=== PATIENT | female | born 1940 | race Caucasian/White ===

== ENCOUNTER 2016-04-04 18:10 | Emergency (ER) | payer MEDICARE, MEDICAID ==
[~2016-04-04 18:10] MED LIST: ADVAIR IH; AMBIEN 5MG TABLE5 MG PO; AMITRIPTYLINE H50 MG PO; ARICEPT PO; ASPIRIN E.C. 8181 MG PO; BUPROPION100 MG PO; Bupropion Hcl PO; CELEBREX PO; CELEBREX200 MG PO; CHERATUSSIN AC10 ML PO; COLACE 100100 MG/CAP PO; COZAAR 50MG50 MG/TAB PO; CYCLOBENZAPRINE10 MG PO; DOCUSATE SODIU100 M2 PO; DONEPEZIL HYDROC5 MG PO; DURAGESIC25 MCG/PAT TD; FLONASE ALLERG9.9 ML NS; FLONASE NASAL S16 GM NS; GABAPENTIN PO; GABAPENTIN400 MG PO; HCTZ PO; HEPARIN 50500 U/5 ML IV; HYDROCODONE BIT1 T41 PO; HYZAAR 25 MG-101 TAB PO; HYZAAR 50-12.1 UDTAB PO; Humalog SC; LANTUS PEN100 U/ML SC; LORTAB 5/500 501 TAB PO; LOTRISONE15 GM TP; MELATONIN PO; NORCO 325 MG-51 TA1 PO; NORCO 325 MG-7.1 TAB PO; NOVOLOG FLEX100 U/ML SC; NS INT FLUSH 1010 ML IV; ONDANSETRON4 M1 PO; PANTOPRAZOLE SO20 MG PO; PERCOCET 325 MG1 TA2 PO; PRILOSEC 20MG20 MG PO; REMOVE FENTANYL TD; RESTORIL PO; TYLENOL 325MG325 MG PO; TYLENOL 650MG650 M2 PO; ULTRAM50 M1 PO; VALIUM 5MG T5 MG/TAB PO; VANCOMYCIN HCL1 GM IV; XANAX .25M0.25 MG/TA PO; ZOFRAN ODT4 MG PO
[2016-04-04] MEDS ORDERED: [UNRECOGNIZED DRUG - OTHER] SQ (18:14)
[2016-04-04] MEDS ORDERED: PERCOCET 325 MG1 TA2 PO (20:07)
== END 2016-04-04 20:28 | disposition home or self-care (01) ==
LOC: ED 18:10
DX: S80.01XA Contusion of right knee, initial encounter (principal); S80.02XA Contusion of left knee, initial encounter; E11.9 Type 2 diabetes mellitus without complications; S20.219A Contusion of unspecified front wall of thorax, initial encounter; Z79.4 Long term (current) use of insulin; W19.XXXA Unspecified fall, initial encounter; Y92.018 Other place in single-family (private) house as the place of occurrence of the external cause

== ENCOUNTER → 2016-08-03 | Outpatient (CLI) | payer MEDICARE, MEDICAID ==
[2016-04-04 20:32] VITALS: BP 147/76
[~2016-08-03] MED LIST changes: +ARICEPT10 M1 PO; +GLUCOPHAGE PO; +INSULIN 70/3100 U/ML SQ; +[UNRECOGNIZED DRUG - OTHER] SQ
== END ==
LOC: MAMMO 12:47
DX: Z12.31 Encounter for screening mammogram for malignant neoplasm of breast (principal)
CPT/HCPCS: G0202

== ENCOUNTER 2016-08-22 16:45 | Emergency (ER) | payer MEDICARE, MEDICAID ==
[~2016-08-22] VITALS: Ht 162.6 cm; Wt 113.6 kg
[~2016-08-22 16:45] MED LIST changes: -ARICEPT10 M1 PO; -GLUCOPHAGE PO; -INSULIN 70/3100 U/ML SQ
[2016-08-22] MEDS ORDERED: ARICEPT10 M1 PO (16:55)
[2016-08-22] MEDS ORDERED: INSULIN 70/3100 U/ML SQ (16:56)
[2016-08-22] MEDS ORDERED: GLUCOPHAGE PO (16:57)
[2016-08-22 18:45] VITALS: BP 177/78
== END 2016-08-22 18:20 | disposition home or self-care (01) ==
LOC: ED 16:45
DX: E11.65 Type 2 diabetes mellitus with hyperglycemia (principal); Z79.4 Long term (current) use of insulin; R10.32 Left lower quadrant pain; E66.01 Morbid (severe) obesity due to excess calories; Z68.41 Body mass index [BMI] 40.0-44.9, adult; I10 Essential (primary) hypertension; K21.9 Gastro-esophageal reflux disease without esophagitis

== ENCOUNTER → 2016-08-23 | Day surgery (SDC) | payer MEDICARE, MEDICAID ==
[2016-08-22 18:45] VITALS: BP 177/78
[~2016-08-23] MED LIST changes: +ARICEPT10 M1 PO; +GLUCOPHAGE PO; +INSULIN 70/3100 U/ML SQ
== END ==
LOC: MSO 07:02
DX: Z12.11 Encounter for screening for malignant neoplasm of colon (principal); Z86.010 Personal history of colon polyps; R10.32 Left lower quadrant pain; D12.2 Benign neoplasm of ascending colon; D12.3 Benign neoplasm of transverse colon; K57.30 Diverticulosis of large intestine without perforation or abscess without bleeding
CPT/HCPCS: 00810; J3010; J7042

== ENCOUNTER 2016-11-22 01:37 | Emergency (ER) | payer MEDICARE, MEDICAID ==
[~2016-11-22] VITALS: Ht 175.3 cm; Wt 159.1 kg
[2016-11-22 02:35] VITALS: BP 154/72
== END 2016-11-22 02:35 | disposition home or self-care (01) ==
LOC: ED 01:37
DX: S96.211A Strain of intrinsic muscle and tendon at ankle and foot level, right foot, initial encounter (principal); X50.1XXA Overexertion from prolonged static or awkward postures, initial encounter; Y92.009 Unspecified place in unspecified non-institutional (private) residence as the place of occurrence of the external cause; E11.9 Type 2 diabetes mellitus without complications; Z79.4 Long term (current) use of insulin
CPT/HCPCS: J1885

== ENCOUNTER → 2017-04-07 | Outpatient (CLI) | payer MEDICARE, MEDICAID | LOC: MAMMO 12:42 | DX: N63.20 Unspecified lump in the left breast, unspecified quadrant (principal) ==

== ENCOUNTER 2017-05-15 08:30 | Emergency (ER) | payer MEDICARE, MEDICAID ==
[~2017-05-15] VITALS: Ht 165.1 cm; Wt 123.1 kg
[2017-05-15] MEDS ORDERED: AMITRIPTYLINE H50 M1 PO (08:45)
[2017-05-15] MEDS ORDERED: WELLBUTRIN (08:45)
[2017-05-15] MEDS ORDERED: PIOGLITAZONE HC15 MG PO (08:46)
[2017-05-15] MEDS ORDERED: OMEPRAZOLE D/R20 MG PO (08:46)
[2017-05-15 09:11] LABS: BASO # 0.1 (0.02-0.10); EOS # 0.3 (0.04-0.40); EOS % 2.8 % (1.0-5.0); HEMATOCRIT 40.9 % (37.0-47.0); MEAN CELL VOLUME 79 fl (78-100); MEAN CORPUSCULAR HEMOGLOBIN 25 pg (27-31); MEAN CORPUSCULAR HGB CONC 32 g/dL (33-37); MEAN PLATELET VOLUME 9.4 fl (7.4-10.4); MONO # 0.7 (0.20-0.80); PLATELET COUNT 303 K/mm3 (130-400); RED BLOOD COUNT 5.17 M/mm3 (4.10-5.30); RED CELL DISTRIBUTION WIDTH 15.2 % (11.5-14.5)
[2017-05-15 09:23] LABS: ALBUMIN 3.8 g/dL (3.5-5.0); BUN/CREATININE RATIO 18.5 (6.0-26.0); POTASSIUM 3.8 mmol/L (3.6-5.0); TOTAL BILIRUBIN 0.3 mg/dL (0.2-1.3); TOTAL PROTEIN 7.5 g/dL (6.3-8.2)
[2017-05-15] MEDS ORDERED: ZOFRAN ODT8 M1 PO (10:36)
[2017-05-15 10:54] VITALS: BP 173/85
== END 2017-05-15 10:52 | disposition home or self-care (01) ==
LOC: ED 08:30
PROVIDERS: Physician Assistant
DX: A08.4 Viral intestinal infection, unspecified (principal); E11.9 Type 2 diabetes mellitus without complications; Z79.4 Long term (current) use of insulin; K21.9 Gastro-esophageal reflux disease without esophagitis; I10 Essential (primary) hypertension; I51.9 Heart disease, unspecified

== ENCOUNTER 2018-03-02 09:27 | Emergency (ER) | payer MEDICARE, MEDICAID ==
[~2018-03-02 09:27] MED LIST changes: +AMITRIPTYLINE H50 M1 PO; +OMEPRAZOLE D/R20 MG PO; +PIOGLITAZONE HC15 MG PO; +WELLBUTRIN; +ZOFRAN ODT8 M1 PO
[2018-03-02] MEDS ORDERED: PAIN RELIEVER500 M2 PO (09:37)
[2018-03-02] MEDS ORDERED: WELLBUTRIN PO (09:38)
[2018-03-02] MEDS ORDERED: LOSARTAN POTASS1 TA2 PO (09:39)
[2018-03-02] MEDS ORDERED: INSULIN 70/3100 U/ML SQ (09:39)
[2018-03-02] MEDS ORDERED: NORCO 325 MG-51 TA1 PO (11:01)
[2018-03-02] MEDS ORDERED: CYCLOBENZAPRINE10 M1 PO (11:01)
[2018-03-02 11:20] VITALS: BP 119/69
== END 2018-03-02 11:23 | disposition home or self-care (01) ==
LOC: ED 09:27
DX: S29.012A Strain of muscle and tendon of back wall of thorax, initial encounter (principal); W01.0XXA Fall on same level from slipping, tripping and stumbling without subsequent striking against object, initial encounter; Y92.000 Kitchen of unspecified non-institutional (private) residence as the place of occurrence of the external cause; E11.9 Type 2 diabetes mellitus without complications; Z79.4 Long term (current) use of insulin; I10 Essential (primary) hypertension; K21.9 Gastro-esophageal reflux disease without esophagitis; Z79.899 Other long term (current) drug therapy
CPT/HCPCS: J1885; J2270; J2360

== ENCOUNTER → 2018-07-05 | Outpatient (CLI) | payer MEDICARE, MEDICAID ==
[~2018-07-05] MED LIST changes: +CYCLOBENZAPRINE10 M1 PO; +LOSARTAN POTASS1 TA2 PO; +PAIN RELIEVER500 M2 PO; +WELLBUTRIN PO
== END ==
LOC: RAD 07:48
DX: S82.51XA Displaced fracture of medial malleolus of right tibia, initial encounter for closed fracture (principal); S83.281A Other tear of lateral meniscus, current injury, right knee, initial encounter; M17.11 Unilateral primary osteoarthritis, right knee

== ENCOUNTER 2018-07-26 10:30 | Outpatient (RCR) | payer MEDICARE, MEDICAID | END 2018-07-26 11:00 | LOC: PT 10:30 | DX: R29.6 Repeated falls (principal) ==

== ENCOUNTER → 2018-09-05 | Outpatient (CLI) | payer MEDICARE, MEDICAID ==
[2018-09-05 16:25] LABS: EOS # 0.3 (0.04-0.40); EOS % 2.9 % (1.0-5.0); HEMATOCRIT 41.9 % (37.0-47.0); HEMOGLOBIN 13.3 g/dL (12.5-16.0); LYMPH# 2.5 (1.50-4.00); MEAN CELL VOLUME 80 fl (78-100); MEAN CORPUSCULAR HEMOGLOBIN 25 pg (27-31); MEAN CORPUSCULAR HGB CONC 32 g/dL (33-37); MEAN PLATELET VOLUME 9.4 fl (7.4-10.4); MONO # 0.8 (0.20-0.80); NEU # 6.5 (1.40-6.50); PLATELET COUNT 303 K/mm3 (130-400); RED BLOOD COUNT 5.27 M/mm3 (4.10-5.30); RED CELL DISTRIBUTION WIDTH 15.9 % (11.5-14.5); WHITE BLOOD COUNT 10.2 K/mm3 (4.8-10.8)
[2018-09-05 17:21] LABS: ALBUMIN 3.7 g/dL (3.4-4.8); CALCIUM 9.3 mg/dL (8.3-10.5); POTASSIUM 4.7 mmol/L (3.5-5.1); TOTAL BILIRUBIN 0.2 mg/dL (0.2-1.2)
== END ==
LOC: LAB 15:52
PROVIDERS: Family Medicine
DX: E11.9 Type 2 diabetes mellitus without complications (principal); I10 Essential (primary) hypertension; E78.5 Hyperlipidemia, unspecified

== ENCOUNTER → 2018-09-20 | Outpatient (CLI) | payer MEDICARE, MEDICAID | LOC: MAMMO 09-13 10:00 | DX: Z12.31 Encounter for screening mammogram for malignant neoplasm of breast (principal); Z78.0 Asymptomatic menopausal state ==

== ENCOUNTER → 2018-09-20 | Outpatient (CLI) | payer MEDICARE, MEDICAID | LOC: MAMMO 09-13 10:45 → RAD 09-13 10:45 | DX: Z12.31 Encounter for screening mammogram for malignant neoplasm of breast (principal); Z13.820 Encounter for screening for osteoporosis; Z78.0 Asymptomatic menopausal state ==

== ENCOUNTER → 2018-11-23 | Outpatient (CLI) | payer MEDICARE, MEDICAID ==
[2018-11-23 14:19] LABS: BASO # 0.1 (0.02-0.10); EOS # 0.2 (0.04-0.40); EOS % 1.9 % (1.0-5.0); HEMATOCRIT 40.7 % (37.0-47.0); HEMOGLOBIN 12.7 g/dL (12.5-16.0); LYMPH# 2.1 (1.50-4.00); MEAN CELL VOLUME 78 fl (78-100); MEAN CORPUSCULAR HGB CONC 31 g/dL (33-37); MEAN PLATELET VOLUME 9.4 fl (7.4-10.4); NEU # 8.1 (1.40-6.50); PLATELET COUNT 341 K/mm3 (130-400); RED BLOOD COUNT 5.21 M/mm3 (4.10-5.30); RED CELL DISTRIBUTION WIDTH 15.5 % (11.5-14.5); WHITE BLOOD COUNT 11.4 K/mm3 (4.8-10.8)
[2018-11-23 14:25] LABS: MEAN CORPUSCULAR HEMOGLOBIN 24 pg (27-31)
[2018-11-23 14:27] LABS: ALBUMIN 3.7 g/dL (3.4-4.8); POTASSIUM 4.2 mmol/L (3.5-5.1)
[2018-11-23 14:28] LABS: CALCIUM 9.1 mg/dL (8.3-10.5)
[2018-11-23 14:29] LABS: TOTAL PROTEIN 8.1 g/dL (6.2-8.1)
[2018-11-23 14:31] LABS: TOTAL BILIRUBIN 0.3 mg/dL (0.2-1.2)
[2018-11-23 14:41] LABS: D-DIMER 1.83 mg/L FEU (0.15-0.50)
== END ==
LOC: LAB 13:56 → RAD 13:56
PROVIDERS: Physician Assistant
DX: R60.0 Localized edema (principal); M10.9 Gout, unspecified

== ENCOUNTER → 2018-11-29 | Day surgery (SDC) | payer MEDICARE, MEDICAID | LOC: MSO 10:48 | DX: E11.36 Type 2 diabetes mellitus with diabetic cataract (principal); H26.491 Other secondary cataract, right eye; Z79.4 Long term (current) use of insulin; Z79.82 Long term (current) use of aspirin ==

== ENCOUNTER → 2018-12-21 | Outpatient (CLI) | payer MEDICARE, MEDICAID | LOC: RAD 13:44 | DX: M17.11 Unilateral primary osteoarthritis, right knee (principal); M16.0 Bilateral primary osteoarthritis of hip ==

== ENCOUNTER → 2019-01-08 | Outpatient (CLI) | payer MEDICARE, MEDICAID ==
[2019-01-08 08:37] LABS: ALBUMIN 3.2 g/dL (3.4-4.8)
[2019-01-08 08:38] LABS: POTASSIUM 4.1 mmol/L (3.5-5.1)
[2019-01-08 08:39] LABS: CALCIUM 8.6 mg/dL (8.3-10.5)
[2019-01-08 08:40] LABS: TOTAL PROTEIN 6.6 g/dL (6.2-8.1)
[2019-01-08 08:42] LABS: TOTAL BILIRUBIN 0.2 mg/dL (0.2-1.2)
[2019-01-08 08:44] LABS: BASO # 0.1 (0.02-0.10); EOS # 0.4 (0.04-0.40); EOS % 3.7 % (1.0-5.0); HEMATOCRIT 39.2 % (37.0-47.0); HEMOGLOBIN 12.2 g/dL (12.5-16.0); LYMPH# 2.2 (1.50-4.00); MEAN CELL VOLUME 78 fl (78-100); MEAN CORPUSCULAR HGB CONC 31 g/dL (33-37); MEAN PLATELET VOLUME 10.3 fl (7.4-10.4); NEU # 7.5 (1.40-6.50); PLATELET COUNT 273 K/mm3 (130-400); RED BLOOD COUNT 5.05 M/mm3 (4.10-5.30); RED CELL DISTRIBUTION WIDTH 16.9 % (11.5-14.5); WHITE BLOOD COUNT 11.2 K/mm3 (4.8-10.8)
[2019-01-08 08:46] LABS: MEAN CORPUSCULAR HEMOGLOBIN 24 pg (27-31)
== END ==
LOC: LAB 07:25 → EDSTATUS 10:11
PROVIDERS: Family Medicine
DX: E11.9 Type 2 diabetes mellitus without complications (principal); N39.0 Urinary tract infection, site not specified

== ENCOUNTER 2019-03-03 16:57 | Emergency (ER) | payer MEDICARE, MEDICAID ==
[~2019-03-03] VITALS: Ht 165.1 cm; Wt 123.4 kg
[~2019-03-03 16:57] MED LIST changes: +FLUTICASON0.05 MG/AC NS; +LIDOCAINE PAIN1 EACH TP; +SERTRALINE50 MG PO; +VOLTAREN 75 DR75 MG PO
[2019-03-03 18:14] LABS: HEMATOCRIT 41.4 % (37.0-47.0); HEMOGLOBIN 13.2 g/dL (12.5-16.0); MEAN CELL VOLUME 78 fl (78-100); MEAN CORPUSCULAR HEMOGLOBIN 25 pg (27-31); MEAN CORPUSCULAR HGB CONC 32 g/dL (33-37); MEAN PLATELET VOLUME 9.4 fl (7.4-10.4); PLATELET COUNT 308 K/mm3 (130-400); RED BLOOD COUNT 5.33 M/mm3 (4.10-5.30); RED CELL DISTRIBUTION WIDTH 17.4 % (11.5-14.5); WHITE BLOOD COUNT 17.5 K/mm3 (4.8-10.8)
[2019-03-03 18:21] LABS: POTASSIUM 3.4 mmol/L (3.5-5.1)
[2019-03-03 18:22] LABS: CALCIUM 9.3 mg/dL (8.3-10.5)
[2019-03-03 18:28] LABS: LYMPHOCYTE 5 % (20-51); MONOCYTE 8 % (3-10); NEUTROPHILS 87 % (42-75)
[2019-03-03 18:29] LABS: HYPOCHROMIA 1+
[2019-03-03 19:12] LABS: PH-URINE 5.5 (5.0 - 8.0); URINE APPEARANCE CLEAR; URINE BILIRUBIN NEGATIVE (NEGATIVE); URINE BLOOD NEGATIVE (NEGATIVE); URINE COLOR YELLOW; URINE GLUCOSE NEGATIVE (NEGATIVE); URINE KETONE NEGATIVE (NEGATIVE); URINE LEUKOCYTE ESTERASE NEGATIVE (NEGATIVE); URINE NITRATE NEGATIVE (NEGATIVE); URINE PROTEIN(semi-quant) TRACE mg/dL (NEGATIVE); URINE UROBILINOGEN NORMAL (NORMAL)
[2019-03-03 19:13] LABS: URINE MUCUS PRESENT (NOT PRESENT)
[2019-03-03 23:44] VITALS: BP 142/45
[2019-03-04] MEDS ORDERED: BUPROPION HCL200 M1 PO (07:43)
== END 2019-03-03 23:44 | disposition other institution (70) ==
LOC: ED 16:57
PROVIDERS: Family Medicine
DX: E11.9 Type 2 diabetes mellitus without complications (principal); I95.1 Orthostatic hypotension; R29.6 Repeated falls; F03.90 Unspecified dementia, unspecified severity, without behavioral disturbance, psychotic disturbance, mood disturbance, and anxiety; K21.9 Gastro-esophageal reflux disease without esophagitis; E66.9 Obesity, unspecified; Z90.49 Acquired absence of other specified parts of digestive tract; Z90.710 Acquired absence of both cervix and uterus; Z96.611 Presence of right artificial shoulder joint; Z98.890 Other specified postprocedural states
CPT/HCPCS: J7030

== ENCOUNTER 2019-03-03 23:44 | Inpatient (IN) | payer MEDICARE, MEDICAID ==
[~2019-03-03] VITALS: Ht 165.1 cm; Wt 122.6 kg
[2019-03-04] VITALS (8 sets, daily range): BP systolic 124–155; BP diastolic 45–76
[2019-03-04] MEDS ORDERED: BUPROPION HCL200 M1 PO (07:43)
[2019-03-04 08:28] LABS: EOS # 0.2 (0.04-0.40); EOS % 2.3 % (1.0-5.0); HEMATOCRIT 38.1 % (37.0-47.0); LYMPH# 1.8 (1.50-4.00); MEAN CELL VOLUME 79 fl (78-100); MEAN CORPUSCULAR HEMOGLOBIN 25 pg (27-31); MEAN CORPUSCULAR HGB CONC 32 g/dL (33-37); MEAN PLATELET VOLUME 9.4 fl (7.4-10.4); MONO # 0.9 (0.20-0.80); NEU # 7.3 (1.40-6.50); PLATELET COUNT 306 K/mm3 (130-400); RED BLOOD COUNT 4.84 M/mm3 (4.10-5.30); RED CELL DISTRIBUTION WIDTH 17.8 % (11.5-14.5); WHITE BLOOD COUNT 10.2 K/mm3 (4.8-10.8)
[2019-03-04 14:09] LABS: POTASSIUM 3.7 mmol/L (3.5-5.1)
[2019-03-04 14:10] LABS: CALCIUM 8.6 mg/dL (8.3-10.5)
[2019-03-05] VITALS (7 sets, daily range): BP systolic 144–191; BP diastolic 76–100
[2019-03-06 03:05] VITALS: BP 180/76
[2019-03-06 06:22] VITALS: BP 172/83
[2019-03-06 06:23] VITALS: BP 172/83
[2019-03-06 11:38] VITALS: BP 149/80
[2019-03-06 12:51] VITALS: BP 149/80
== END 2019-03-06 13:30 | DRG 312 ==
LOC: MED/SURG 23:44
PROVIDERS: ADMIT Family Medicine
DX: I95.1 Orthostatic hypotension (principal); Z68.41 Body mass index [BMI] 40.0-44.9, adult; K21.9 Gastro-esophageal reflux disease without esophagitis; G89.29 Other chronic pain; M54.5 Low back pain; E86.0 Dehydration; E11.9 Type 2 diabetes mellitus without complications; E66.01 Morbid (severe) obesity due to excess calories; Z79.4 Long term (current) use of insulin; Z96.619 Presence of unspecified artificial shoulder joint; Z90.710 Acquired absence of both cervix and uterus; Z91.81 History of falling
CPT/HCPCS: J1815; J7030

== ENCOUNTER → 2019-06-13 | Outpatient (CLI) | payer MEDICARE, MEDICAID ==
[~2019-06-13] MED LIST changes: +BUPROPION HCL200 M1 PO
[2019-06-13 15:04] LABS: BASO # 0.1 (0.02-0.10); EOS # 0.4 (0.04-0.40); EOS % 3.8 % (1.0-5.0); HEMOGLOBIN 13.1 g/dL (12.5-16.0); MEAN CELL VOLUME 79 fl (78-100); MEAN CORPUSCULAR HGB CONC 31 g/dL (33-37); MEAN PLATELET VOLUME 9.1 fl (7.4-10.4); MONO # 0.8 (0.20-0.80); PLATELET COUNT 309 K/mm3 (130-400); RED BLOOD COUNT 5.43 M/mm3 (4.10-5.30); RED CELL DISTRIBUTION WIDTH 15.9 % (11.5-14.5); WHITE BLOOD COUNT 9.2 K/mm3 (4.8-10.8)
[2019-06-13 15:06] LABS: MEAN CORPUSCULAR HEMOGLOBIN 24 pg (27-31)
[2019-06-13 15:14] LABS: POTASSIUM 4.3 mmol/L (3.5-5.1)
[2019-06-13 15:15] LABS: CALCIUM 9.6 mg/dL (8.3-10.5)
[2019-06-13 15:16] LABS: TOTAL PROTEIN 6.9 g/dL (6.2-8.1)
[2019-06-13 15:18] LABS: TOTAL BILIRUBIN 0.2 mg/dL (0.2-1.2)
== END ==
LOC: RAD 14:52
PROVIDERS: Nurse Practitioner
DX: R05 Cough (principal)

== ENCOUNTER 2019-11-02 17:57 | Emergency (ER) | payer MEDICARE, MEDICAID ==
[~2019-11-02] VITALS: Ht 165.1 cm; Wt 121.1 kg
[2019-11-02] MEDS ORDERED: COLACE100 M1 PO (18:30)
[2019-11-02] MEDS ORDERED: DONEPEZIL HCL10 MG PO (18:31)
[2019-11-02] MEDS ORDERED: AMITRIPTYLINE H50 M1 PO (18:32)
[2019-11-02] MEDS ORDERED: LISINOPRIL10 MG PO (18:35)
[2019-11-02] MEDS ORDERED: MUCINEX 60600 MG/TA1 PO (18:46)
[2019-11-02] MEDS ORDERED: NAMENDA10 MG PO (18:47)
[2019-11-02] MEDS ORDERED: INSULIN 70/3100 U/ML SQ (18:48)
[2019-11-02] MEDS ORDERED: TRAMADOL 50 MG TAB PO (18:50)
[2019-11-02] MEDS ORDERED: TYLENOL325 M1 PO (18:51)
[2019-11-02 20:34] VITALS: BP 162/96
[2019-11-02] MEDS ORDERED: HYDROCODONE AN473 M1 PO (20:39)
== END 2019-11-02 20:54 | disposition home or self-care (01) ==
LOC: ED 17:57
DX: J20.1 Acute bronchitis due to Hemophilus influenzae (principal); F32.9 Major depressive disorder, single episode, unspecified; F03.90 Unspecified dementia, unspecified severity, without behavioral disturbance, psychotic disturbance, mood disturbance, and anxiety; K21.9 Gastro-esophageal reflux disease without esophagitis; Z20.828 Contact with and (suspected) exposure to other viral communicable diseases; Z79.51 Long term (current) use of inhaled steroids; Z79.4 Long term (current) use of insulin
CPT/HCPCS: J1040; J1100

== ENCOUNTER → 2019-12-21 | Outpatient (CLI) | payer MEDICARE, MEDICAID ==
[~2019-12-21] MED LIST changes: +COLACE100 M1 PO; +DONEPEZIL HCL10 MG PO; +HYDROCODONE AN473 M1 PO; +LISINOPRIL10 MG PO; +MUCINEX 60600 MG/TA1 PO; +NAMENDA10 MG PO; +TRAMADOL 50 MG TAB PO; +TYLENOL325 M1 PO
[2019-12-21 18:19] LABS: ALBUMIN 3.8 g/dL (3.4-4.8)
[2019-12-21 18:20] LABS: CALCIUM 8.9 mg/dL (8.3-10.5)
[2019-12-21 18:26] LABS: TOTAL BILIRUBIN 0.1 mg/dL (0.2-1.2)
== END ==
LOC: LAB 17:30
PROVIDERS: Family Medicine
DX: R73.09 Other abnormal glucose (principal)

== ENCOUNTER → 2019-12-28 | Outpatient (CLI) | payer MEDICARE, MEDICAID ==
[2019-12-28 12:10] LABS: URINE APPEARANCE CLOUDY; URINE BILIRUBIN NEGATIVE (NEGATIVE); URINE BLOOD 250 ery/uL (NEGATIVE); URINE COLOR YELLOW; URINE GLUCOSE NEGATIVE (NEGATIVE); URINE KETONE NEGATIVE (NEGATIVE); URINE LEUKOCYTE ESTERASE 2+ (NEGATIVE); URINE MUCUS PRESENT (NOT PRESENT); URINE NITRATE POSITIVE (NEGATIVE); URINE PROTEIN(semi-quant) 1+ mg/dL (NEGATIVE); URINE UROBILINOGEN NORMAL (NORMAL); URINE WBC >50 /hpf (0-3)
== END ==
LOC: LAB 04:00
PROVIDERS: Family Medicine
DX: N23 Unspecified renal colic (principal); R30.9 Painful micturition, unspecified; R39.15 Urgency of urination

== ENCOUNTER → 2020-02-08 | Outpatient (CLI) | payer MEDICARE, MEDICAID ==
[2020-02-08 12:32] LABS: URINE APPEARANCE HAZY; URINE COLOR YELLOW
[2020-02-08 12:33] LABS: URINE BILIRUBIN NEGATIVE (NEGATIVE); URINE BLOOD NEGATIVE (NEGATIVE); URINE GLUCOSE NEGATIVE (NEGATIVE); URINE KETONE NEGATIVE (NEGATIVE); URINE LEUKOCYTE ESTERASE TRACE (NEGATIVE); URINE MUCUS PRESENT (NOT PRESENT); URINE NITRATE NEGATIVE (NEGATIVE); URINE PROTEIN(semi-quant) TRACE mg/dL (NEGATIVE); URINE UROBILINOGEN NORMAL (NORMAL)
== END ==
LOC: LAB 11:15
PROVIDERS: Family Medicine
DX: R44.1 Visual hallucinations (principal)

== ENCOUNTER 2020-04-14 22:29 | Emergency (ER) | payer MEDICARE, MEDICAID ==
[~2020-04-14] VITALS: Ht 165.1 cm; Wt 118.2 kg
[2020-04-14] MEDS ORDERED: ALBUTEROL2.5 MG/3 M IH (22:51)
[2020-04-14] MEDS ORDERED: MAPAP500 M2 PO (22:52)
[2020-04-14] MEDS ORDERED: AMITRIPTYLINE H25 M2 PO (22:54)
[2020-04-14] MEDS ORDERED: HCTZ 25MG25 MG PO (22:55)
[2020-04-14] MEDS ORDERED: COZAAR100 MG PO (22:56)
[2020-04-14] MEDS ORDERED: PROMETH-CODEIN 65 ML PO (22:58)
[2020-04-14] MEDS ORDERED: DESYREL 100MG100 MG PO (22:59)
[2020-04-14] MEDS ORDERED: VOLTAREN GEL1% TP (23:01)
[2020-04-14] MEDS ORDERED: ZYRTEC ALLERGY10 MG PO (23:02)
[2020-04-14 23:54] VITALS: BP 144/66
== END 2020-04-14 23:54 | disposition home or self-care (01) ==
LOC: ED 22:29
DX: S50.12XA Contusion of left forearm, initial encounter (principal); I10 Essential (primary) hypertension; E11.9 Type 2 diabetes mellitus without complications; F32.9 Major depressive disorder, single episode, unspecified; F03.90 Unspecified dementia, unspecified severity, without behavioral disturbance, psychotic disturbance, mood disturbance, and anxiety; K21.9 Gastro-esophageal reflux disease without esophagitis; Z79.4 Long term (current) use of insulin; W19.XXXA Unspecified fall, initial encounter; Y92.129 Unspecified place in nursing home as the place of occurrence of the external cause

== ENCOUNTER → 2020-04-15 | Outpatient (CLI) | payer MEDICARE, MEDICAID ==
[2020-04-14 23:54] VITALS: BP 144/66
[~2020-04-15] MED LIST changes: +ALBUTEROL2.5 MG/3 M IH; +AMITRIPTYLINE H25 M2 PO; +COZAAR100 MG PO; +DESYREL 100MG100 MG PO; +HCTZ 25MG25 MG PO; +MAPAP500 M2 PO; +PROMETH-CODEIN 65 ML PO; +VOLTAREN GEL1% TP; +ZYRTEC ALLERGY10 MG PO
[2020-04-15 11:34] LABS: BASO # 0.1 (0.02-0.10); EOS # 0.2 (0.04-0.40); EOS % 2.9 % (1.0-5.0); HEMATOCRIT 40.7 % (37.0-47.0); HEMOGLOBIN 12.7 g/dL (12.5-16.0); LYMPH# 1.9 (1.50-4.00); MEAN CELL VOLUME 82 fl (78-100); MEAN CORPUSCULAR HEMOGLOBIN 26 pg (27-31); MEAN CORPUSCULAR HGB CONC 31 g/dL (33-37); MEAN PLATELET VOLUME 10.5 fl (7.4-10.4); MONO # 0.6 (0.20-0.80); NEU # 4.5 (1.40-6.50); PLATELET COUNT 256 K/mm3 (130-400); RED BLOOD COUNT 4.97 M/mm3 (4.10-5.30); RED CELL DISTRIBUTION WIDTH 14.3 % (11.5-14.5); WHITE BLOOD COUNT 7.2 K/mm3 (4.8-10.8)
[2020-04-15 11:43] LABS: ALBUMIN 3.6 g/dL (3.4-4.8); POTASSIUM 3.8 mmol/L (3.5-5.1)
[2020-04-15 11:46] LABS: TOTAL PROTEIN 6.6 g/dL (6.2-8.1)
[2020-04-15 11:47] LABS: TOTAL BILIRUBIN 0.3 mg/dL (0.2-1.2)
== END ==
LOC: LAB 10:41
PROVIDERS: Family Medicine
DX: E11.649 Type 2 diabetes mellitus with hypoglycemia without coma (principal); E78.5 Hyperlipidemia, unspecified; I10 Essential (primary) hypertension; F32.89 Other specified depressive episodes

== ENCOUNTER 2020-09-01 17:33 | Emergency (ER) | payer MEDICARE, MEDICAID ==
[2020-09-01] MEDS ORDERED: TYLENOL EXTRA500 M2 PO (18:35)
[2020-09-01 18:37] LABS: BASO # 0.06 (0.02-0.10); EOS # 0.31 (0.04-0.40); EOS % 4.8 % (1.0-5.0); HEMATOCRIT 41.7 % (37.0-47.0); HEMOGLOBIN 13.7 g/dL (12.5-16.0); LYMPH# 2.36 (1.50-4.00); MEAN CELL VOLUME 82 fl (78-100); MEAN CORPUSCULAR HEMOGLOBIN 27 pg (27-31); MEAN CORPUSCULAR HGB CONC 33 g/dL (33-37); MEAN PLATELET VOLUME 9.7 fl (7.4-10.4); PLATELET COUNT 226 K/mm3 (130-400); RED BLOOD COUNT 5.07 M/mm3 (4.10-5.30); RED CELL DISTRIBUTION WIDTH 13.1 % (11.5-14.5); WHITE BLOOD COUNT 6.4 K/mm3 (4.8-10.8)
[2020-09-01] MEDS ORDERED: AMITRIPTYLINE H25 M2 PO (18:45)
[2020-09-01] MEDS ORDERED: PROTONIX TR40 M1 PO (18:46)
[2020-09-01] MEDS ORDERED: REFRESH TEARS15 ML OP (18:47)
[2020-09-01 18:51] LABS: ALBUMIN 3.7 g/dL (3.4-4.8); POTASSIUM 3.6 mmol/L (3.5-5.1)
[2020-09-01 18:52] LABS: SODIUM 136 mmol/L (136-145)
[2020-09-01 18:53] LABS: CALCIUM 8.8 mg/dL (8.3-10.5)
[2020-09-01 18:54] LABS: GLUCOSE 250 mg/dL (65-105); TOTAL PROTEIN 6.9 g/dL (6.2-8.1)
[2020-09-01 18:55] LABS: CARBON DIOXIDE 25 mmol/L (23-31)
[2020-09-01 18:56] LABS: TOTAL BILIRUBIN 0.2 mg/dL (0.2-1.2)
[2020-09-01 18:59] LABS: AST-SGOT 12 U/L (5-34)
[2020-09-01 19:00] LABS: ALT/SGPT 11 U/L (0-55)
[2020-09-01 19:01] LABS: LIPASE 12 U/L (8-78)
[2020-09-01 19:11] LABS: TROPONIN-I < 0.03 ng/mL (<0.030)
[2020-09-01 19:13] LABS: PARTIAL THROMBOPLASTIN TIME 26.3 SECONDS (21.0-32.0); PROTHROMBIN TIME 9.6 SECONDS (9.0-12.0)
[2020-09-01 20:12] LABS: URINE APPEARANCE CLEAR; URINE BILIRUBIN NEGATIVE (NEGATIVE); URINE BLOOD NEGATIVE (NEGATIVE); URINE COLOR YELLOW; URINE GLUCOSE NEGATIVE (NEGATIVE); URINE KETONE NEGATIVE (NEGATIVE); URINE LEUKOCYTE ESTERASE NEGATIVE (NEGATIVE); URINE NITRATE NEGATIVE (NEGATIVE); URINE PROTEIN(semi-quant) NEGATIVE (NEGATIVE); URINE UROBILINOGEN NORMAL (NORMAL)
[2020-09-01 21:55] VITALS: BP 157/79
== END 2020-09-01 21:31 | disposition home or self-care (01) ==
LOC: ED 17:33
PROVIDERS: Nurse Practitioner
DX: R42 Dizziness and giddiness (principal); I10 Essential (primary) hypertension; E11.9 Type 2 diabetes mellitus without complications; F32.9 Major depressive disorder, single episode, unspecified; F03.90 Unspecified dementia, unspecified severity, without behavioral disturbance, psychotic disturbance, mood disturbance, and anxiety; K21.9 Gastro-esophageal reflux disease without esophagitis; M19.91 Primary osteoarthritis, unspecified site; Z79.4 Long term (current) use of insulin; Z79.1 Long term (current) use of non-steroidal anti-inflammatories (NSAID); Z79.899 Other long term (current) drug therapy
CPT/HCPCS: J7030

== ENCOUNTER → 2020-09-16 | Outpatient (CLI) | payer MEDICARE, MEDICAID ==
[~2020-09-16] MED LIST changes: +PERCOCET 325 MG1 TA5 PO; +PROTONIX TR40 M1 PO; +REFRESH TEARS15 ML OP; +TYLENOL EXTRA500 M2 PO
== END ==
LOC: RAD 14:25
DX: M50.30 Other cervical disc degeneration, unspecified cervical region (principal); M48.02 Spinal stenosis, cervical region; M47.814 Spondylosis without myelopathy or radiculopathy, thoracic region

== ENCOUNTER → 2020-10-08 | Outpatient (CLI) | payer MEDICARE, MEDICAID ==
[2020-10-08 16:33] LABS: ALBUMIN 3.8 g/dL (3.4-4.8)
[2020-10-08 16:34] LABS: POTASSIUM 4.1 mmol/L (3.5-5.1)
[2020-10-08 16:35] LABS: CALCIUM 9.2 mg/dL (8.3-10.5)
[2020-10-08 16:36] LABS: TOTAL PROTEIN 7.5 g/dL (6.2-8.1)
[2020-10-08 16:38] LABS: TOTAL BILIRUBIN 0.3 mg/dL (0.2-1.2)
== END ==
LOC: LAB 15:57
PROVIDERS: Family Medicine
DX: Z01.89 Encounter for other specified special examinations (principal)

== ENCOUNTER 2021-01-18 14:57 | Emergency (ER) | payer MEDICARE, MEDICAID ==
[~2021-01-18 14:57] MED LIST changes: -PERCOCET 325 MG1 TA5 PO
[2021-01-18] MEDS ORDERED: PERCOCET 325 MG1 TA5 PO (16:19)
[2021-01-18 17:13] VITALS: BP 192/91
== END 2021-01-18 16:49 | disposition home or self-care (01) ==
LOC: ED 14:57
DX: S82.841A Displaced bimalleolar fracture of right lower leg, initial encounter for closed fracture (principal); F03.90 Unspecified dementia, unspecified severity, without behavioral disturbance, psychotic disturbance, mood disturbance, and anxiety; F32.A Depression, unspecified; E11.9 Type 2 diabetes mellitus without complications; G89.29 Other chronic pain; M54.9 Dorsalgia, unspecified; K21.9 Gastro-esophageal reflux disease without esophagitis; I10 Essential (primary) hypertension; E66.9 Obesity, unspecified; Z79.4 Long term (current) use of insulin; Z79.899 Other long term (current) drug therapy; W01.0XXA Fall on same level from slipping, tripping and stumbling without subsequent striking against object, initial encounter
CPT/HCPCS: J1885; L4386

== ENCOUNTER → 2021-02-06 | Outpatient (REF) ==
[~2021-02-06] MED LIST changes: +PERCOCET 325 MG1 TA5 PO
[2021-02-06 16:39] LABS: URINE APPEARANCE CLOUDY
[2021-02-06 16:40] LABS: URINE BILIRUBIN NEGATIVE (NEGATIVE); URINE BLOOD NEGATIVE (NEGATIVE); URINE COLOR DARK YELLOW; URINE GLUCOSE NEGATIVE (NEGATIVE); URINE KETONE TR (NEGATIVE); URINE LEUKOCYTE ESTERASE NEGATIVE (NEGATIVE); URINE NITRATE NEGATIVE (NEGATIVE); URINE PROTEIN(semi-quant) 1+ mg/dL (NEGATIVE); URINE UROBILINOGEN NORMAL (NORMAL)
[2021-02-06 16:41] LABS: URINE MUCUS PRESENT (NOT PRESENT)
== END ==
LOC: LAB 15:32 → EDSTATUS 16:17
PROVIDERS: Family Medicine
DX: N39.0 Urinary tract infection, site not specified (principal)

== ENCOUNTER → 2021-03-05 | Outpatient (CLI) | payer MEDICARE, MEDICAID ==
[2021-03-05 17:16] LABS: URINE APPEARANCE CLOUDY; URINE COLOR YELLOW
[2021-03-05 17:18] LABS: PH-URINE 6.5 (5.0 - 8.0); URINE BILIRUBIN NEGATIVE (NEGATIVE); URINE BLOOD 250 ery/uL (NEGATIVE); URINE GLUCOSE NEGATIVE (NEGATIVE); URINE KETONE NEGATIVE (NEGATIVE); URINE LEUKOCYTE ESTERASE 2+ (NEGATIVE); URINE NITRATE POSITIVE (NEGATIVE); URINE PROTEIN(semi-quant) 2+ mg/dL (NEGATIVE); URINE UROBILINOGEN NORMAL (NORMAL); URINE WBC >50 /hpf (0-3)
== END ==
LOC: LAB 15:56
PROVIDERS: Family Medicine
DX: N39.0 Urinary tract infection, site not specified (principal)

== ENCOUNTER → 2021-05-01 | Outpatient (CLI) | payer MEDICARE, MEDICAID ==
[2021-05-01 16:05] LABS: BASO # 0.02 K/mm3 (0.02-0.10); EOS # 0.18 K/mm3 (0.04-0.40); HEMATOCRIT 43.8 % (37.0-47.0); HEMOGLOBIN 14.5 g/dL (12.5-16.0); LYMPH# 1.41 K/mm3 (1.50-4.00); MEAN CELL VOLUME 83 fl (78-100); MEAN CORPUSCULAR HEMOGLOBIN 28 pg (27-31); MEAN CORPUSCULAR HGB CONC 33 g/dL (33-37); MEAN PLATELET VOLUME 10.4 fl (7.4-10.4); MONO # 0.74 K/mm3 (0.20-0.80); NEU # 6.45 K/mm3 (1.40-6.50); PLATELET COUNT 178 K/mm3 (130-400); RED BLOOD COUNT 5.27 M/mm3 (4.10-5.30); RED CELL DISTRIBUTION WIDTH 14.3 % (11.5-14.5); WHITE BLOOD COUNT 8.8 K/mm3 (4.8-10.8)
[2021-05-01 16:16] LABS: ALBUMIN 3.4 g/dL (3.4-4.8); POTASSIUM 3.8 mmol/L (3.5-5.1)
[2021-05-01 16:18] LABS: CALCIUM 8.8 mg/dL (8.3-10.5)
[2021-05-01 16:19] LABS: TOTAL PROTEIN 6.6 g/dL (6.2-8.1)
[2021-05-01 16:21] LABS: TOTAL BILIRUBIN 0.3 mg/dL (0.2-1.2)
== END ==
LOC: RAD 15:50
PROVIDERS: Family Medicine
DX: R05.2 Subacute cough (principal); M54.9 Dorsalgia, unspecified

== ENCOUNTER → 2021-06-01 | Outpatient (CLI) | payer MEDICARE, MEDICAID | LOC: RAD 07:45 | DX: K22.89 Other specified disease of esophagus (principal) ==

== ENCOUNTER → 2021-06-15 | Outpatient (CLI) | payer MEDICARE, MEDICAID ==
[2021-06-15 14:17] LABS: URINE APPEARANCE CLEAR; URINE BILIRUBIN NEGATIVE (NEGATIVE); URINE BLOOD NEGATIVE (NEGATIVE); URINE COLOR YELLOW; URINE GLUCOSE NEGATIVE (NEGATIVE); URINE KETONE NEGATIVE (NEGATIVE); URINE LEUKOCYTE ESTERASE NEGATIVE (NEGATIVE); URINE NITRATE NEGATIVE (NEGATIVE); URINE PROTEIN(semi-quant) TRACE (NEGATIVE); URINE UROBILINOGEN NORMAL (NORMAL); URINE WBC 0-1 /hpf (0-3)
== END ==
LOC: LAB 10:49
PROVIDERS: Family Medicine
DX: F03.90 Unspecified dementia, unspecified severity, without behavioral disturbance, psychotic disturbance, mood disturbance, and anxiety (principal)

== ENCOUNTER → 2021-07-07 | Outpatient (CLI) | payer MEDICARE, MEDICAID | LOC: RAD 13:27 | DX: M19.012 Primary osteoarthritis, left shoulder (principal); R07.9 Chest pain, unspecified; W19.XXXA Unspecified fall, initial encounter ==

== ENCOUNTER → 2021-07-24 | Outpatient (CLI) | payer MEDICARE, MEDICAID ==
[2021-07-24 17:17] LABS: URINE APPEARANCE CLOUDY; URINE BILIRUBIN NEGATIVE (NEGATIVE); URINE BLOOD 50 ery/uL (NEGATIVE); URINE COLOR LIGHT YELLOW; URINE GLUCOSE NEGATIVE (NEGATIVE); URINE KETONE NEGATIVE (NEGATIVE); URINE LEUKOCYTE ESTERASE 2+ (NEGATIVE); URINE NITRATE NEGATIVE (NEGATIVE); URINE PROTEIN(semi-quant) TRACE (NEGATIVE); URINE UROBILINOGEN NORMAL (NORMAL); URINE WBC 31-50 /hpf (0-3)
== END ==
LOC: LAB 16:10
PROVIDERS: Family Medicine
DX: N39.0 Urinary tract infection, site not specified (principal)

== ENCOUNTER → 2021-07-27 | Outpatient (CLI) | payer MEDICARE, MEDICAID ==
[2021-07-27 13:49] LABS: D-DIMER 0.82 mg/L FEU (0.15-0.50)
== END ==
LOC: LAB 12:40
PROVIDERS: Family Medicine
DX: R52 Pain, unspecified (principal)

== ENCOUNTER → 2021-08-07 | Outpatient (CLI) | payer MEDICARE, MEDICAID | LOC: RAD 15:25 | DX: M16.0 Bilateral primary osteoarthritis of hip (principal); M47.816 Spondylosis without myelopathy or radiculopathy, lumbar region ==

== ENCOUNTER → 2021-09-04 | Outpatient (CLI) | payer MEDICARE, MEDICAID | LOC: RAD 14:36 | DX: M19.041 Primary osteoarthritis, right hand (principal); M18.12 Unilateral primary osteoarthritis of first carpometacarpal joint, left hand ==

== ENCOUNTER → 2021-09-11 | Outpatient (CLI) | payer MEDICARE, MEDICAID ==
[2021-09-11 16:58] LABS: HEMATOCRIT 43.4 % (37.0-47.0); HEMOGLOBIN 14.1 g/dL (12.5-16.0); MEAN PLATELET VOLUME 9.4 fl (7.4-10.4); RED BLOOD COUNT 5.07 M/mm3 (4.10-5.30); WHITE BLOOD COUNT 12.8 K/mm3 (4.8-10.8)
[2021-09-11 17:10] LABS: ALBUMIN 3.4 g/dL (3.4-4.8)
[2021-09-11 17:11] LABS: POTASSIUM 3.9 mmol/L (3.5-5.1)
[2021-09-11 17:12] LABS: CALCIUM 9.1 mg/dL (8.3-10.5)
[2021-09-11 17:13] LABS: TOTAL PROTEIN 6.1 g/dL (6.2-8.1)
[2021-09-11 17:15] LABS: TOTAL BILIRUBIN 0.2 mg/dL (0.2-1.2)
== END ==
LOC: LAB 16:36
PROVIDERS: Family Medicine
DX: E11.3291 Type 2 diabetes mellitus with mild nonproliferative diabetic retinopathy without macular edema, right eye (principal); I10 Essential (primary) hypertension

== ENCOUNTER 2021-10-23 14:43 | Emergency (ER) | payer MEDICARE, MEDICAID ==
[~2021-10-23] VITALS: Ht 162.6 cm; Wt 113.2 kg
[2021-10-23 16:16] LABS: BASO # 0.03 K/mm3 (0.02-0.10); EOS # 0.04 K/mm3 (0.04-0.40); EOS % 0.3 % (1.0-5.0); HEMOGLOBIN 14.1 g/dL (12.5-16.0); LYMPH# 2.34 K/mm3 (1.50-4.00); MEAN CELL VOLUME 85 fl (78-100); MEAN CORPUSCULAR HEMOGLOBIN 28 pg (27-31); MEAN CORPUSCULAR HGB CONC 33 g/dL (33-37); MEAN PLATELET VOLUME 8.8 fl (7.4-10.4); MONO # 0.78 K/mm3 (0.20-0.80); NEU # 9.75 K/mm3 (1.40-6.50); PLATELET COUNT 270 K/mm3 (130-400); RED BLOOD COUNT 5.06 M/mm3 (4.10-5.30); WHITE BLOOD COUNT 13.1 K/mm3 (4.8-10.8)
[2021-10-23 16:28] LABS: ALBUMIN 3.5 g/dL (3.4-4.8); POTASSIUM 4.6 mmol/L (3.5-5.1)
[2021-10-23 16:29] LABS: CALCIUM 9.3 mg/dL (8.3-10.5)
[2021-10-23 16:31] LABS: TOTAL PROTEIN 6.6 g/dL (6.2-8.1)
[2021-10-23 16:32] LABS: TOTAL BILIRUBIN 0.3 mg/dL (0.2-1.2)
[2021-10-23 16:44] LABS: URINE APPEARANCE CLEAR; URINE BILIRUBIN NEGATIVE (NEGATIVE); URINE BLOOD NEGATIVE (NEGATIVE); URINE COLOR YELLOW; URINE KETONE NEGATIVE (NEGATIVE); URINE LEUKOCYTE ESTERASE NEGATIVE (NEGATIVE); URINE NITRATE NEGATIVE (NEGATIVE); URINE PROTEIN(semi-quant) NEGATIVE (NEGATIVE); URINE UROBILINOGEN NORMAL (NORMAL); URINE WBC 0-1 /hpf (0-3)
[2021-10-23 18:20] VITALS: BP 164/93
== END 2021-10-23 18:25 | disposition home or self-care (01) ==
LOC: ED 14:43
PROVIDERS: Nurse Practitioner
DX: E11.65 Type 2 diabetes mellitus with hyperglycemia (principal); Z79.4 Long term (current) use of insulin; Z20.822 Contact with and (suspected) exposure to COVID-19

== ENCOUNTER → 2021-11-19 | Outpatient (CLI) | payer MEDICARE, MEDICAID | LOC: RAD 09:45 | DX: M25.552 Pain in left hip (principal); Z71.3 Dietary counseling and surveillance ==

== ENCOUNTER → 2021-11-25 | Outpatient (CLI) | payer MEDICARE, MEDICAID ==
[2021-11-25 11:28] LABS: BASO # 0.04 K/mm3 (0.02-0.10); EOS # 0.08 K/mm3 (0.04-0.40); EOS % 0.7 % (1.0-5.0); HEMATOCRIT 39.6 % (37.0-47.0); HEMOGLOBIN 12.9 g/dL (12.5-16.0); LYMPH# 1.93 K/mm3 (1.50-4.00); MEAN CELL VOLUME 88 fl (78-100); MEAN CORPUSCULAR HEMOGLOBIN 29 pg (27-31); MEAN CORPUSCULAR HGB CONC 33 g/dL (33-37); MEAN PLATELET VOLUME 8.9 fl (7.4-10.4); MONO # 0.73 K/mm3 (0.20-0.80); NEU # 8.85 K/mm3 (1.40-6.50); PLATELET COUNT 258 K/mm3 (130-400); RED BLOOD COUNT 4.51 M/mm3 (4.10-5.30); RED CELL DISTRIBUTION WIDTH 14.2 % (11.5-14.5); WHITE BLOOD COUNT 11.7 K/mm3 (4.8-10.8)
[2021-11-25 11:47] LABS: PROTHROMBIN TIME 9.5 SECONDS (9.0-12.0)
== END ==
LOC: LAB 10:31
PROVIDERS: Family Medicine
DX: E11.649 Type 2 diabetes mellitus with hypoglycemia without coma (principal); Z91.81 History of falling

== ENCOUNTER → 2022-02-17 | Outpatient (CLI) | payer MEDICARE, MEDICAID ==
[2022-02-17 11:13] LABS: HEMATOCRIT 40.1 % (37.0-47.0); MEAN PLATELET VOLUME 10.4 fl (7.4-10.4); RED BLOOD COUNT 4.59 M/mm3 (4.10-5.30); RED CELL DISTRIBUTION WIDTH 12.7 % (11.5-14.5)
[2022-02-17 11:20] LABS: ALBUMIN 3.4 g/dL (3.4-4.8)
[2022-02-17 11:21] LABS: POTASSIUM 4.2 mmol/L (3.5-5.1)
[2022-02-17 11:22] LABS: CALCIUM 9.1 mg/dL (8.3-10.5)
[2022-02-17 11:23] LABS: TOTAL PROTEIN 6.5 g/dL (6.2-8.1)
[2022-02-17 11:25] LABS: TOTAL BILIRUBIN 0.2 mg/dL (0.2-1.2)
[2022-02-17 11:49] LABS: D-DIMER 1.14 mg/L FEU (0.15-0.50)
== END ==
LOC: LAB 10:04
PROVIDERS: Family Medicine
DX: E11.649 Type 2 diabetes mellitus with hypoglycemia without coma (principal); M79.604 Pain in right leg; I10 Essential (primary) hypertension

== ENCOUNTER → 2023-01-20 | Outpatient (CLI) | payer MEDICARE, MEDICAID ==
[~2023-01-20] MED LIST changes: +AMBIEN5 M1 PO; +CYCLOBENZ5 MG PO; +DILTIAZEM HCL60 MG PO; +FAMOTIDINE20 MG PO; +HYDROCHLOROTHIA50 M1 PO; +LEVEMIR; +LEVEMIR SQ; +LEXAPRO5 MG PO; +MEMANTINE HCL10 MG PO; +NEURONTIN300 MG/CAP PO; +NORVASC 10MG10 MG PO; +OZEMPIC0.25 MG/01 SQ; +PANTOPRAZOLE SO40 MG PO; +PROCARDIA XL30 M1 PO; +ZESTRIL5 M1 PO
== END ==
LOC: LAB 04:45
DX: E11.9 Type 2 diabetes mellitus without complications (principal)

== ENCOUNTER → 2023-04-07 | Outpatient (CLI) | payer MEDICARE, MEDICAID ==
[2023-04-07 14:59] LABS: BASO # 0.04 K/mm3 (0.02-0.10); EOS # 0.14 K/mm3 (0.04-0.40); HEMATOCRIT 42.9 % (37.0-47.0); HEMOGLOBIN 13.5 g/dL (12.5-16.0); LYMPH# 3.78 K/mm3 (1.50-4.00); MEAN CELL VOLUME 83 fl (78-100); MEAN CORPUSCULAR HEMOGLOBIN 26 pg (27-31); MEAN CORPUSCULAR HGB CONC 32 g/dL (33-37); MEAN PLATELET VOLUME 9.3 fl (7.4-10.4); MONO # 0.92 K/mm3 (0.20-0.80); NEU # 9.66 K/mm3 (1.40-6.50); RED BLOOD COUNT 5.18 M/mm3 (4.10-5.30); RED CELL DISTRIBUTION WIDTH 14.5 % (11.5-14.5); WHITE BLOOD COUNT 14.6 K/mm3 (4.8-10.8)
[2023-04-07 15:07] LABS: ALBUMIN 3.7 g/dL (3.4-4.8)
[2023-04-07 15:09] LABS: TOTAL PROTEIN 6.9 g/dL (6.2-8.1)
[2023-04-07 15:11] LABS: TOTAL BILIRUBIN 0.3 mg/dL (0.2-1.2)
[2023-04-07 15:13] LABS: D-DIMER 0.48 mg/L FEU (0.15-0.50)
[2023-04-07 15:16] LABS: MAGNESIUM 2.18 mg/dL (1.60-2.60)
[2023-04-07 15:23] LABS: PLATELET COUNT 217 K/mm3 (130-400)
== END ==
LOC: LAB 14:06
PROVIDERS: Nurse Practitioner
DX: R07.89 Other chest pain (principal)

== ENCOUNTER → 2023-10-24 | Outpatient (REF) | payer MEDICARE, MEDICAID ==
[2023-10-24 23:32] LABS: HEMATOCRIT 39.3 % (37.0-47.0); HEMOGLOBIN 12.8 g/dL (12.5-16.0); MEAN PLATELET VOLUME 9.7 fl (7.4-10.4); RED BLOOD COUNT 4.87 M/mm3 (4.10-5.30); RED CELL DISTRIBUTION WIDTH 14.1 % (11.5-14.5); WHITE BLOOD COUNT 12.4 K/mm3 (4.8-10.8)
[2023-10-24 23:34] LABS: ALBUMIN 3.6 g/dL (3.4-4.8)
[2023-10-24 23:36] LABS: CALCIUM 9.5 mg/dL (8.3-10.5)
[2023-10-24 23:37] LABS: TOTAL PROTEIN 6.5 g/dL (6.2-8.1)
[2023-10-24 23:39] LABS: TOTAL BILIRUBIN 0.2 mg/dL (0.2-1.2)
== END ==
LOC: LAB 23:10
PROVIDERS: Family Medicine
DX: E11.649 Type 2 diabetes mellitus with hypoglycemia without coma (principal)

== ENCOUNTER → 2024-01-21 | Outpatient (CLI) | payer MEDICARE, MEDICAID ==
[2024-01-21 11:57] LABS: HEMOGLOBIN 13.1 g/dL (12.5-16.0); MEAN PLATELET VOLUME 9.9 fl (7.4-10.4); RED CELL DISTRIBUTION WIDTH 13.1 % (11.5-14.5); WHITE BLOOD COUNT 7.7 K/mm3 (4.8-10.8)
[2024-01-21 12:15] LABS: ALBUMIN 3.6 g/dL (3.4-4.8)
[2024-01-21 12:17] LABS: CALCIUM 9.3 mg/dL (8.3-10.5)
[2024-01-21 12:18] LABS: TOTAL PROTEIN 6.7 g/dL (6.2-8.1)
[2024-01-21 12:20] LABS: TOTAL BILIRUBIN 0.3 mg/dL (0.2-1.2)
== END ==
LOC: LAB 11:39
PROVIDERS: Family Medicine
DX: E11.649 Type 2 diabetes mellitus with hypoglycemia without coma (principal); I10 Essential (primary) hypertension

== ENCOUNTER → 2024-04-23 | Outpatient (REF) | payer MEDICARE, MEDICAID ==
[2024-04-23 06:33] LABS: BASO # 0.06 K/mm3 (0.02-0.10); EOS # 0.35 K/mm3 (0.04-0.40); EOS % 3.6 % (1.0-5.0); HEMATOCRIT 43.1 % (37.0-47.0); HEMOGLOBIN 13.9 g/dL (12.5-16.0); MEAN CELL VOLUME 82 fl (78-100); MEAN CORPUSCULAR HEMOGLOBIN 26 pg (27-31); MEAN CORPUSCULAR HGB CONC 32 g/dL (33-37); MEAN PLATELET VOLUME 9.9 fl (7.4-10.4); NEU # 6.39 K/mm3 (1.40-6.50); PLATELET COUNT 280 K/mm3 (130-400); RED BLOOD COUNT 5.27 M/mm3 (4.10-5.30); RED CELL DISTRIBUTION WIDTH 14.1 % (11.5-14.5); WHITE BLOOD COUNT 9.8 K/mm3 (4.8-10.8)
[2024-04-23 06:37] LABS: ALBUMIN 3.6 g/dL (3.4-4.8)
[2024-04-23 06:38] LABS: SODIUM 142 mmol/L (136-145)
[2024-04-23 06:39] LABS: CALCIUM 9.1 mg/dL (8.3-10.5)
[2024-04-23 06:40] LABS: GLUCOSE 104 mg/dL (65-105); TOTAL PROTEIN 6.8 g/dL (6.2-8.1)
[2024-04-23 06:41] LABS: CARBON DIOXIDE 26 mmol/L (23-31)
[2024-04-23 06:42] LABS: TOTAL BILIRUBIN 0.4 mg/dL (0.2-1.2)
[2024-04-23 06:45] LABS: AST-SGOT 10 U/L (5-34)
[2024-04-23 06:47] LABS: ALT/SGPT < 6 U/L (0-55)
== END ==
LOC: LAB 06:00
PROVIDERS: Family Medicine
DX: I10 Essential (primary) hypertension (principal); E11.649 Type 2 diabetes mellitus with hypoglycemia without coma

== ENCOUNTER → 2024-07-20 | Outpatient (REF) | payer MEDICARE, MEDICAID ==
[2024-07-20 15:03] LABS: HEMATOCRIT 41.4 % (37.0-47.0); HEMOGLOBIN 13.2 g/dL (12.5-16.0); MEAN PLATELET VOLUME 10.3 fl (7.4-10.4); RED BLOOD COUNT 4.91 M/mm3 (4.10-5.30); RED CELL DISTRIBUTION WIDTH 13.3 % (11.5-14.5); WHITE BLOOD COUNT 8.4 K/mm3 (4.8-10.8)
[2024-07-20 15:07] LABS: ALBUMIN 3.7 g/dL (3.4-4.8)
[2024-07-20 15:08] LABS: CALCIUM 8.7 mg/dL (8.3-10.5)
[2024-07-20 15:10] LABS: TOTAL PROTEIN 7.4 g/dL (6.2-8.1)
[2024-07-20 15:11] LABS: TOTAL BILIRUBIN 0.2 mg/dL (0.2-1.2)
== END ==
LOC: LAB 14:47
PROVIDERS: Family Medicine
DX: I10 Essential (primary) hypertension (principal); E11.649 Type 2 diabetes mellitus with hypoglycemia without coma